=== PATIENT | female | born 1975 | race Two or more races ===

== ENCOUNTER 2023-09-23 08:54 | Outpatient (CLI) | payer OTHER | END 2023-09-23 10:22 | disposition home or self-care (01) | LOC: SONOGRAMA 08:54 | PROVIDERS: ATTEND Pathology Anatomic Pathology & Clinical Pathology | DX: D34 Benign neoplasm of thyroid gland (principal); E06.3 Autoimmune thyroiditis; E04.1 Nontoxic single thyroid nodule ==